=== PATIENT | male | born 1960 | race Hispanic/Latino ===

== ENCOUNTER 2017-08-18 15:44 | Emergency (ER) | payer BC, OTHER ==
[2017-08-18 16:08] VITALS: TEMP 97.8
--- NOTE | 2017-08-18 16:34 | RAD ---
HISTORY: syncope COMPARISON: 09/15/2013 FINDINGS: LUNGS: No active pulmonary disease. PLEURA: No significant pleural effusion identified, no pneumothorax apparent. CARDIOVASCULAR: Mild cardiomegaly OSSEOUS STRUCTURES: No significant abnormalities. VISUALIZED UPPER ABDOMEN: Normal. OTHER FINDINGS: None. IMPRESSION: No active disease.
--- NOTE | 2017-08-18 16:49 | ED PDOC ---
Arrival/HPI - General Chief Complaint: Dizziness/Lightheaded Time Seen by Provider: 08/18/17 16:00 - History of Present Illness Narrative History of Present Illness (Text): 56 y/o M c PMHx bipolar disorder p/w syncope just prior to arrival. Patient was visiting mother in hospital and had just finished meeting with physician in which patient's mother was made DNR/DNI. He was waiting for elevator when he began feeling lightheaded. He called out to a hospital staff member in hallway who sat patient down on chair and patient lost consciousness and awoke to staff member calling, "Wake up! Wake up!" Patient notes he was having facial and bilateral hand numbness. He states he also has been going through numerous stressful events at work and attempting to get insurance/green card renewal for his mother. He denies any chest pain, dyspnea, history of CHF, bleeding. A rapid response was called on patient, and he was brought down to ED. Past Medical History - Infectious Disease Hx of Infectious Diseases: None - Cardiac Hx Cardiac Disorders: Yes Hx Hypertension: Yes - Pulmonary Hx Respiratory Disorders: No - Neurological Hx Neurological Disorder: No - HEENT Hx HEENT Disorder: Yes Other/Comment: glasses - Renal Hx Renal Disorder: No - Endocrine/Metabolic Hx Endocrine Disorders: No - Hematological/Oncological Hx Blood Disorders: No - Integumentary Hx Dermatological Disorder: No - Musculoskeletal/Rheumatological Hx Musculoskeletal Disorders: No - Gastrointestinal Hx Gastrointestinal Disorders: No - Genitourinary/Gynecological Hx Genitourinary Disorders: No - Psychiatric Hx Psychophysiologic Disorder: Yes Hx Bipolar Disorder: Yes Hx Substance Use: No - Surgical History Hx Musculoskeletal Surgery: Yes Other/Comment: ACL r/p. b/l knee sx - Anesthesia Hx Anesthesia: Yes Hx Anesthesia Reactions: No Family/Social History Family/Social History: No Known Family HX Smoking Status: Never Smoked Hx Alcohol Use: Yes Frequency of alcohol use: Socially Hx Substance Use: No Allergies/Home Meds Allergies/Adverse Reactions: Allergies clindamycin Allergy (Verified 08/18/17 15:59) ANAPHYLAXIS Home Medications: Home Meds Medication Instructions Recorded Confirmed LORazepam [Ativan] 0.5 mg PO DAILY 08/18/17 08/18/17 Lamotrigine [Lamictal Xr] 200 g PO DAILY 08/18/17 08/18/17 Losartan/Hydrochlorothiazide 1 tab PO DAILY 08/18/17 08/18/17 [Losartan-Hctz 100-25 mg Tab] Promethazine [Phenergan Syrup] 5 ml PO PRN PRN 08/18/17 08/18/17 QUEtiapine [SEROquel] 25 mg PO BID 08/18/17 08/18/17 Risperidone [Risperidone Odt] 0.25 mg PO BID 08/18/17 08/18/17 amLODIPine [Norvasc] 5 g PO DAILY 08/18/17 08/18/17 Review of Systems - Physician Review All systems were reviewed & negative as marked: Yes - Review of Systems Constitutional: absent: Fevers Respiratory: absent: SOB Cardiovascular: absent: Chest Pain Physical Exam - Physical Exam Narrative Physical Exam (Text): Gen: NAD Head: NC/AT Eyes: PERRL ENT: MMM Neck: Supple Chest: No tenderness CV: Regular rate Lungs: CTA b/l Abd: Soft, NT Extremities: No swelling. Neuro: Alert, no focal deficit. Vital Signs Temp Pulse Resp BP Pulse Ox 08/18/17 17:09 65 24 124/71 94 L 08/18/17 16:05 97.8 F 82 18 128/70 99 Finger Stick Blood Glucose: 102 Medical Decision Making ED Course and Treatment: EKG Sinus rhythm, 73 bpm, no ST/T wave changes CXR no acute disease. No hypotension. 08/18/17 17:49 Dr. Christopher agreeable with expeditious follow up in office. Patient states he feels well with no active symptoms. Will discharge home, instructed to return to ED immediately for any dyspnea, vomiting, bleeding, syncope, palpitations. - Lab Interpretations Lab Results: 08/18/17 16:50 08/18/17 16:50 Lab Results 08/18/17 16:50: Sodium 141, Potassium 3.0 L, Chloride 102, Carbon Dioxide 25, Anion Gap 17, BUN 24 H, Creatinine 1.8 H, Est GFR ( Amer) 48, Est GFR ( Non-Af Amer) 39, Random Glucose 102, Calcium 9.7, Total Bilirubin 0.4, AST 37, ALT 45, Alkaline Phosphatase 36 L, Total Creatine Kinase 217, Troponin I < 0.01 , Total Protein 6.4, Albumin 3.8, Globulin 2.6, Albumin/Globulin Ratio 1.5 08/18/17 16:50: WBC 4.1 L, RBC 4.37, Hgb 13.4 L, Hct 39.4 L, MCV 90.2, MCH 30.7 , MCHC 34.0, RDW 12.6, Plt Count 183, MPV 10.1, Gran % 61.0, Lymph % (Auto) 29.0 , [place] % (Auto) 9.3 H, Eos % (Auto) 0.2 L, Baso % (Auto) 0.5, Gran # 2.50, Lymph # (Auto) 1.2, [place] # (Auto) 0.4, Eos # (Auto) 0.0, Baso # (Auto) 0.02 - RAD Interpretation Radiology Orders: 08/18/17 16:12 CHEST PORTABLE [RAD] Stat Disposition/Present on Arrival - Present on Arrival Any Indicators Present on Arrival: No History of DVT/PE: No History of Uncontrolled Diabetes: No Urinary Catheter: No History of Decub. Ulcer: No History Surgical Site Infection Following: None - Disposition Have Diagnosis and Disposition been Completed?: Yes Diagnosis: Syncope Disposition: HOME/ ROUTINE Disposition Time: 17:27 Patient Plan: Discharge Condition: STABLE Discharge Instructions (ExitCare): Syncope (ED) Referrals: Eddie Christopher MD [Primary Care Provider] - Follow up with primary Forms: [employer] ([employer])
[2017-08-18 16:59] LABS: BASO # 0.02 K/mm3 (0.0-2.0); BASO % 0.5 % (0.0-3.0); EOS % 0.2 % (1.5-5.0); GRAN # 2.5 (1.4-6.5); HEMOGLOBIN 13.4 g/dL (14.0-18.0); LYMPH # 1.2 (1.2-3.4); MEAN CELL VOLUME 90.2 fl (80.0-105.0); MEAN CORPUSCULAR HEMOGLOBIN 30.7 pg (25.0-35.0); MEAN PLATELET VOLUME 10.1 fl (7.0-11.0); MONO # 0.4 (0.1-0.6); MONO % 9.3 % (1.0-6.0); RBC 4.37 10^6/uL (3.5-6.1); RED CELL DISTRIBUTION WIDTH 12.6 % (11.5-14.5); WHITE BLOOD COUNT 4.1 10^3/ul (4.5-11.0)
[2017-08-18 17:14] LABS: ALB/GLOB RATIO 1.5 (1.1-1.8); ALBUMIN 3.8 g/dL (3.0-4.8); ALT/SGPT 45 U/L (7-56); AST/SGOT 37 U/L (17-59); BLOOD UREA NITROGEN 24 mg/dL (7-21); CALCIUM 9.7 mg/dL (8.4-10.5); GFR AFRICAN-AMERICAN 48; GFR NON-AFRICAN AMERICAN 39
[2017-08-18 17:24] LABS: TROPONIN I < 0.01 ng/mL
[2017-08-18] MEDS ORDERED: Potassium Chloride 20 mEq ER Tab PO STA (17:49)
[2017-08-18 20:43] VITALS: BP 126/85; PULSE 70; RESP 16; O2SAT 98
--- NOTE | 2017-08-19 07:33 | CP.PCM.PN ---
<Kit Barnard - Last Filed: 08/19/17 07:17> Subjective - Date & Time of Evaluation Date of Evaluation: 08/18/17 Time of Evaluation: 15:35 - Subjective Subjective: Rapid response note Rapid response called to 3rd floor at approximately 3:35pm. Rapid response team responded immediately. Patient is a 56yo male with past medical history of bipolar disorder that was visiting his mother in the hospital and had just finished talking to the physician during which time his mother was made DNR/ DNI. On the way out of the hospital, patient felt light-headed and as if he was going to pass out and called out for help. On arrival, patient was alert, oriented x3 and answering questions appropriately. His heart rate was noted to be in the 40's. He was placed on nasal cannula and his O2sat was >93%. He was subsequently brought down to the emergency room for further evaluation/ treatment. Physical: General: awake, alert, Head: atraumatic, normocephalic Heart: s1, s2, no murmurs, rubs or gallops Pulm: no wheezing, rales or ronchi Abd: soft, nontender, nondistended Extremities: no clubbing, cyanosis or edema Neuro: cn2-12 grossly intact, no focal motor deficits, sensory exam intact throughout, PERRL, EOMI Assessment: 56yo male with history of bipolar disorder for which [facility] was called for pre- syncope/dizziness Plan: -awake, alert, oriented x3, answering questions appropriately -no focal motor deficits -patient placed on O2 via nasal cannula -HR was noted to be in the 40's however denied chest pain, palpitations, SOB -Patient transported to the emergency room for further evaluation/treatment Objective - Vital Signs/Intake and Output Vital Signs (last 24 hours): Temp Pulse Resp BP Pulse Ox 97.8 F 70 16 126/85 98 08/18/17 16:05 08/18/17 18:07 08/18/17 18:07 08/18/17 18:07 08/18/17 18:07 - Labs Labs: 08/18/17 16:50 08/18/17 16:50 <Ramona Bentley - Last Filed: 08/20/17 16:02> Objective - Vital Signs/Intake and Output Vital Signs (last 24 hours): Temp Pulse Resp BP Pulse Ox 97.8 F 70 16 126/85 98 08/18/17 16:05 08/18/17 18:07 08/18/17 18:07 08/18/17 18:07 08/18/17 18:07 - Labs Labs: 08/18/17 16:50 08/18/17 16:50 Attending/Attestation - Attestation I have personally seen and examined this patient.: Yes I have fully participated in the care of the patient.: Yes I have reviewed all pertinent clinical information, including history, physical exam and plan: Yes Notes (Text): I have seen and examined patient in the hallway by the elevator. Agree with the above note. Patient was sent to ED on wheelchair.
--- NOTE | 2017-08-20 16:23 | CARD ---
APPROVED REPORT EKG Measurement Heart [id number] <Conclusion> Sinus rhythm with premature atrial complexes Otherwise normal ECG
== END 2017-08-18 18:07 | disposition home or self-care (01) ==
LOC: ED 15:44
DX: R55 Syncope and collapse (principal); I10 Essential (primary) hypertension